=== PATIENT | male | born 1955 | race Hispanic/Latino ===

== ENCOUNTER 2022-08-16 15:54 | Emergency (ER) | payer MEDICARE, OTHER ==
[~2022-08-16 15:54] MED LIST: Iopamidol-370 76% 500 ML 1 ML ONE
[2022-08-16 16:43] LABS: #Basophils 0.1 thou/uL (0.0-0.2); #Eosinphils 0.3 thou/uL (0.0-0.7); #Lymphocytes 2.4 thou/uL (1.20-3.40); #Monocytes 0.6 thou/uL (0.11-0.59); %Basophils 0.9 % (0.0-1.0); %Lymphocytes 38.2 % (21.0-51.0); %Neutrophils 46.9 % (42.0-75.0); Hemoglobin 15.4 g/dL (14.0-18.0); Mean Corpuscular HGB CONC 34.1 g/dL (32.0-36.0); Mean Corpuscular Hemoglobin 33.5 pg (27.0-31.0); Mean Corpuscular Volume 98.1 fl (78.0-98.0); Mean Platelet Volume 8.8 fL (7.4-10.4); Platelet Count 160 10x3/uL (130-400); Red Blood Cell (RBC) Count 4.59 mill/uL (4.70-6.10); White Blood Cell (WBC) Count 6.3 10x3/uL (4.8-10.8)
[2022-08-16 17:02] LABS: ALT (SGPT) 19 U/L (8-55); AST (SGOT) 21 U/L (5-34); Albumin 4.6 g/dL (3.4-4.8); Alkaline Phosphatase 82 U/L (40-110); Anion Gap 14 mmol/L (10-20); BUN (Urea Nitrogen) 13 mg/dL (8.4-25.7); Bilirubin, Total 1.3 mg/dL (0.2-1.2); Calc. Creatinine Clearance 0 mL/min (70-130); Calcium 9.2 mg/dL (7.8-10.44); Carbon Dioxide 24 mmol/L (23-31); Chloride 105 mmol/L (98-107); Estimated GFR 83; Glucose 162 mg/dL (80-115); Lipase 23 U/L (8-78); Protein, Total 7.6 g/dL (5.8-8.1); Sodium 139 mmol/L (136-145)
[2022-08-16] MEDS ORDERED: Ketorolac Tromethamine 30 MG/ML VIAL ONE (17:03)
[2022-08-16 18:10] LABS: Bilirubin Negative (Negative); Blood, Urine Negative (Negative); Clarity Clear (Clear); Glucose, Urine (Dipstick) Normal (Negative); Ketone, Urine Negative (Negative); Leukocyte Negative Leu/uL (Negative); Nitrite Negative (Negative); Protein, Urine (Dipstick) Negative (Neg-Trace); Specific Gravity, Urine 1.026 (1.002-1.036); Urobilinogen Normal mg/dL (Less than 2)
== END 2022-08-16 19:12 | disposition home or self-care (01) ==
LOC: ERS 15:54
DX: R10.814 Left lower quadrant abdominal tenderness (principal); R10.813 Right lower quadrant abdominal tenderness
CPT/HCPCS: 36415; 74177; 80053; 81003; 83690; 85025; 96374; J1885; Q9967